=== PATIENT | female | born 1985 | race Caucasian/White ===

== ENCOUNTER 2020-12-22 21:31 | Emergency (ER) ==
[2020-12-22 22:31] LABS: Bacteria/HPF None Seen HPF (None Seen); Bilirubin Negative (Negative); Blood, Urine 3+ (Negative); Calcium Oxalate Crystals 4+ HPF (None Seen); Clarity Turbid (Clear); Glucose, Urine (Dipstick) Normal (Negative); Ketone, Urine Negative (Negative); Leukocyte Negative Leu/uL (Negative); Mucous/LPF Rare LPF (<2+); Nitrite Negative (Negative); Protein, Urine (Dipstick) 20 mg/dL (Neg-Trace); Specific Gravity, Urine 1.027 (1.002-1.036); Squamous Epithelial 0-3 HPF (0-3); Urobilinogen Normal mg/dL (Less than 2); pH, Urine 6.5 (5.0-9.0)
[2020-12-22 22:50] LABS: #Eosinphils 0.2 thou/uL (0.0-0.7); #Lymphocytes 2.5 thou/uL (1.20-3.40); #Monocytes 0.6 thou/uL (0.11-0.59); #Neutrophils 7.3 thou/uL (1.40-6.50); %Basophils 0.3 % (0.0-1.0); %Eosinophils 1.6 % (0.0-10.0); %Lymphocytes 23.4 % (21.0-51.0); %Monocytes 5.6 % (0.0-10.0); Hemoglobin 12.2 g/dL (12.0-16.0); Mean Corpuscular HGB CONC 33.5 g/dL (32.0-36.0); Mean Corpuscular Hemoglobin 29.5 pg (27.0-31.0); Mean Corpuscular Volume 88.1 fL (78.0-98.0); Mean Platelet Volume 8.3 fL (7.4-10.4); Platelet Count 292 thou/uL (130-400); RBC Distribution Width 12.2 % (11.5-14.5); Red Blood Cell (RBC) Count 4.12 mill/uL (4.20-5.40); White Blood Cell (WBC) Count 10.6 thou/uL (4.8-10.8)
[2020-12-22 23:12] LABS: ALT (SGPT) 22 U/L (8-55); AST (SGOT) 14 U/L (5-34); Albumin 3.7 g/dL (3.5-5.0); Alkaline Phosphatase 95 U/L (40-110); Anion Gap 14 mmol/L (10-20); BUN (Urea Nitrogen) 10 mg/dL (7.0-18.7); Bilirubin, Total 0.2 mg/dL (0.2-1.2); Calc. Creatinine Clearance 0 mL/min (70-130); Calcium 9.1 mg/dL (7.8-10.44); Carbon Dioxide 21 mmol/L (22-29); Chloride 104 mmol/L (98-107); Globulin 3.4 g/dL (2.4-3.5); Glucose 105 mg/dL (70-105); Potassium 3.3 mmol/L (3.5-5.1); Protein, Total 7.1 g/dL (6.0-8.3); Sodium 136 mmol/L (136-145)
== END 2020-12-22 23:45 | disposition left against medical advice (07) ==
LOC: ERS 21:31
DX: Z53.21 Procedure and treatment not carried out due to patient leaving prior to being seen by health care provider (principal)
CPT/HCPCS: 36415; 80053; 81003; 81015; 85025; 86850; 86900; 86901

== ENCOUNTER 2022-04-14 09:59 | Outpatient (CLI) | payer BC ==
[2022-04-14 11:20] LABS: BHCG - Serum Negative (NEGATIVE); Pregs Control Background? CLEAR/WHITE (CLR/WHITE); Pregs Control Bar Appear? YES (CONTROL BAR)
[2022-04-14 18:44] LABS: SARS-CoV-2 PCR by NAA Not Detected (NotDetected)
== END 2022-04-14 10:00 | disposition home or self-care (01) ==
LOC: LABBT 09:59
PROVIDERS: ATTEND Specialist
DX: Z01.812 Encounter for preprocedural laboratory examination (principal); E05.00 Thyrotoxicosis with diffuse goiter without thyrotoxic crisis or storm; E06.3 Autoimmune thyroiditis; E05.90 Thyrotoxicosis, unspecified without thyrotoxic crisis or storm; D68.9 Coagulation defect, unspecified; R53.82 Chronic fatigue, unspecified; L65.9 Nonscarring hair loss, unspecified; R63.5 Abnormal weight gain; Z20.822 Contact with and (suspected) exposure to COVID-19
CPT/HCPCS: 84703; 85014; U0003; U0005

== ENCOUNTER 2022-04-16 09:41 | Observation (INO) | payer BC ==
[2022-04-15 10:28] VITALS: BMI 50.5
[2022-04-16] MEDS ORDERED: Dexmedetomidine 200 MCG/2 ML VIAL ONE (10:42)
[2022-04-16] MEDS ORDERED: Propofol 500 MG/50 ML VIAL ONE (10:42)
[2022-04-16] MEDS ORDERED: fentaNYL Citrate/PF 100 MCG/2 ML SYRINGE ONE (10:42)
[2022-04-16] MEDS ORDERED: Succinylcholine 200 MG/10 ml SYRINGE FS ONE (11:30)
[2022-04-16] MEDS ORDERED: Dexamethasone 20 MG/5 ML VIAL ONE (11:30)
[2022-04-16] MEDS ORDERED: PHENYLEPHRINE-NS 100 MCG/ML 10 ML SYRINGE ONE (11:30)
[2022-04-16] MEDS ORDERED: Ondansetron PF 4 MG/2 ML Vial ONE (11:30)
[2022-04-16] MEDS ORDERED: Lidocaine 1% PF 5 ML VIAL ONE (11:30)
[2022-04-16] MEDS ORDERED: PROPOFOL 200 MG/20 ML VIAL ONE (11:30)
[2022-04-16] MEDS ORDERED: ePHEDrine 50 MG/ML VIAL ONE (11:30)
[2022-04-16] MEDS ORDERED: Lidocaine 1% w/Epinephrine 1:100K 20 ML VIAL ONE (11:34)
[2022-04-16] MEDS ORDERED: Heparin 5,000 UNITS/ML VIAL ONE (12:12)
[2022-04-16] MEDS ORDERED: Acetaminophen 500 MG TAB PO PRN (13:53)
[2022-04-16] MEDS ORDERED: Fentanyl 100 MCG/2 ML VIAL ONE (14:09)
[2022-04-16] MEDS ORDERED: Meperidine HCl/PF 25 MG/ML VIAL SLOW IVP PRN (20:12)
[2022-04-16] MEDS: Ketorolac Tromethamine 30 MG/ML VIAL IVP PRN (20:32)
[2022-04-16] MEDS: D5 1/2 NS w/20 mEq KCL 1,000 ML IV SCH (20:32)
[2022-04-16] MEDS: Propylthiouracil 50 MG TAB PO SCH (23:04)
[2022-04-17] MEDS ORDERED: Heparin 5,000 UNITS/ML VIAL SC SCH
[2022-04-17] MEDS: Ketorolac Tromethamine 30 MG/ML VIAL IVP PRN ×2 (04:13→10:50)
[2022-04-17] MEDS: D5 1/2 NS w/20 mEq KCL 1,000 ML IV SCH (05:41)
[2022-04-17] MEDS ORDERED: Levothyroxine Sodium 100 MCG TAB PO SCH (06:00)
[2022-04-17 08:53] VITALS: BP 119/80; TEMP 98.2
[2022-04-17] MEDS ORDERED: Prenatal Vitamin 1 TAB PO SCH (09:00)
[2022-04-17] MEDS ORDERED: Cholecalciferol 1,000 UNITS (25 MCG) TAB PO SCH (09:00)
[2022-04-17] MEDS ORDERED: Folic Acid 1 MG TAB PO SCH (09:00)
[2022-04-17] MEDS ORDERED: Lisinopril 10 MG TAB PO SCH ×2 (09:00)
[2022-04-17] MEDS ORDERED: Aspirin 81 mg Enteric Coated Tablet PO SCH ×2 (09:00)
[2022-04-17] MEDS: Propylthiouracil 50 MG TAB PO SCH (09:56)
== END 2022-04-17 11:09 | disposition home or self-care (01) ==
LOC: SDC 09:41 → SURG B 13:49
PROVIDERS: ADMIT Specialist; ATTEND Specialist
PROC: 0GTK0ZZ Resection of Thyroid Gland, Open Approach (ICD-10-PCS; principal; 2022-04-17)
PROC: 0GBJ0ZZ Excision of Thyroid Gland Isthmus, Open Approach (ICD-10-PCS; 2022-04-17)
DX: E06.3 Autoimmune thyroiditis (principal); E05.00 Thyrotoxicosis with diffuse goiter without thyrotoxic crisis or storm; D68.9 Coagulation defect, unspecified; Z79.82 Long term (current) use of aspirin; Z79.899 Other long term (current) drug therapy; Z88.5 Allergy status to narcotic agent; Z91.018 Allergy to other foods; Z91.048 Other nonmedicinal substance allergy status
CPT/HCPCS: 36415; 82310; 88307; 88325; 96372; 96374; 96375; C1776; G0378; J1100; J1644; J1885; J2175; J2405; J2704; J3010; J3480; J3490

== ENCOUNTER 2022-04-29 16:49 | Emergency (ER) | payer BC ==
[2022-04-29 18:17] LABS: #Eosinphils 0.2 thou/uL (0.0-0.7); #Lymphocytes 2.1 thou/uL (1.20-3.40); #Monocytes 0.4 thou/uL (0.11-0.59); #Neutrophils 4.5 thou/uL (1.40-6.50); %Basophils 0.4 % (0.0-1.0); %Eosinophils 3.2 % (0.0-10.0); %Lymphocytes 28.8 % (21.0-51.0); %Neutrophils 61.6 % (42.0-75.0); Hemoglobin 12.7 g/dL (12.0-16.0); Mean Corpuscular HGB CONC 32.8 g/dL (32.0-36.0); Mean Corpuscular Hemoglobin 28.2 pg (27.0-31.0); Mean Platelet Volume 7.8 fL (7.4-10.4); Platelet Count 299 thou/uL (130-400); RBC Distribution Width 12.7 % (11.5-14.5); Red Blood Cell (RBC) Count 4.51 mill/uL (4.20-5.40); White Blood Cell (WBC) Count 7.3 thou/uL (4.8-10.8)
[2022-04-29 18:48] LABS: ALT (SGPT) 11 U/L (8-55); AST (SGOT) 12 U/L (5-34); Albumin 3.6 g/dL (3.5-5.0); Alkaline Phosphatase 108 U/L (40-110); Anion Gap 13 mmol/L (10-20); BUN (Urea Nitrogen) 9 mg/dL (7.0-18.7); Bilirubin, Total 0.2 mg/dL (0.2-1.2); Calc. Creatinine Clearance 0 mL/min (70-130); Calcium 8.8 mg/dL (7.8-10.44); Carbon Dioxide 24 mmol/L (22-29); Chloride 107 mmol/L (98-107); Globulin 3.2 g/dL (2.4-3.5); Glucose 158 mg/dL (70-105); Magnesium 1.7 mg/dL (1.6-2.6); Potassium 3.6 mmol/L (3.5-5.1); Protein, Total 6.8 g/dL (6.0-8.3); Sodium 140 mmol/L (136-145)
[2022-04-29 18:59] LABS: T4 5.8 ug/dL (4.87-11.72); Thyroid Stimulating Hormone 3.2472 uIU/mL (0.35-4.94)
== END 2022-04-29 19:45 | disposition home or self-care (01) ==
LOC: ERS 16:49
DX: R20.2 Paresthesia of skin (principal); J45.909 Unspecified asthma, uncomplicated; Z79.899 Other long term (current) drug therapy
CPT/HCPCS: 36415; 80053; 83735; 84436; 84443; 84481; 85025; 99284